=== PATIENT | female | born 1995 | race Caucasian/White ===

== ENCOUNTER 2022-07-08 10:28 | Emergency (ER) | payer BC, SELFPAY ==
[2022-07-08 10:34] VITALS: BP 115/79; PULSE 89; RESP 18; TEMP 37; O2SAT 98
--- NOTE | 2022-07-08 11:31 | ED.GENADUL_ITS ---
Discharge Plan Disposition Patient Disposition: Home Discharge Details Clinical Impression: Pain, dental Primary Care Provider: Kylee Evans ED Provider: Martin Aburto Home Meds and New Rx's Prescriptions: New ketorolac 10 mg tablet 10 mg PO TID PRN (Reason: pain) 5 Days Qty: 15 0RF cyclobenzaprine 10 mg tablet 10 mg PO TID PRN (Reason: muscle spasm) Qty: 20 0RF amoxicillin-pot clavulanate 875-125 mg tablet 1 tab PO Q12H 7 Days Qty: 14 0RF Discharge Instructions Instructions: Toothache (ED) Additional Instructions: Please take medication as prescribed and monitor your symptoms. It is very important that you follow-up with your dental provider or your primary care provider for any new or significant worsening of symptoms. If you develop persistent fevers, facial swelling, inability to swallow or control your saliva or changes in your voice please return immediately to the emergency department for reassessment. Stand Alone Forms: Work Release Referrals: Kylee Evans [Primary Care Provider] - Medical Decision Making Patient presenting to the emergency department for chief complaint of left upper jaw pain. Patient states that this all started after she had a filling put in 3 weeks ago. She was seen multiple times by multiple dentist that said that she had developed a hematoma that she also had needed a root canal. Since then she is been taking [id number] and following instructions as per dental provider. The patient states that she is started developing some night sweats and subjective fever, worsening pain and discomfort in the past for eating. She does state that she has been clenching her jaw which is not helped the discomfort. Physical exam does show tenderness to the left TMJ of the line is an exam shows no emergent findings. No signs of deep neck space infection ( Retropharyngeal abscess, Sarbjit's angina, Parapharyngeal space infection, Peritonsillar Abscess ([employer])) or Epiglottitis. Pt non toxic and stable. Differential diagnosis to include continued hematoma, postprocedural neuropathic pain, TMJ joint dysfunction, infected dental carry post procedure. At this time I do not feel that advanced imaging is required but this was discussed and offered to the patient which after utilization of shared decision-making patient decided to defer on advanced imaging as well. We will plan to cover patient with antibiotics due to night sweats and subjective chills. We will place patient on Flexeril for TM J joint pain and discomfort along with some ketorolac. On screening patient did state that she was having some anxiety depression and suicidal ideations. Did discuss this with patient and she stated that she has had those ongoing for a while, that she feels safe and supported by family and that she has no plan to harm herself.. Offered her screening and resources here today but she stated due to the significant pain and discomfort along with other social stressors at this point she does not want to talk with anyone. Patient is alert and oriented x3 and I do feel is trustworthy that she will return for worsening symptoms but do not feel that I need to further press the issue with patient. Patient also does state that she has a dental provider follow-up next Monday which I told her it is very important to keep this for definitive care of her dental issue. After discussion of diagnosis and plan of care patient has no further needs, questions, or concerns and states clear understanding to return to the emergency department for any worsening symptoms. This documentation was generated using [employer] system, please disregard any oddities of phrase or misspellings. HPI General Mode of arrival: ambulatory . Date/Time Provider Initiated Documentation: 07/08/22 11:29 . Limitations to Documentation: no limitations . Information obtained by: patient and RN notes reviewed . History of Present Illness 26 year old F presents to the emergency department with the chief complaint of left jaw pain , described as severe, with intensity rated at 10. Quality is described as sharp, and is localized to the face. Patient started experiencing this week(s) (3) and it has been constant. No relieving factors improve symptom(s), No exacerbating factors reported . Patient did receive the following treatments prior to arrival, NSAID Related Data Home Medications Medication Instructions Recorded Confirmed amoxicillin 875 mg-potassium 1 tab PO Q12H 7 days #14 tabs 07/08/22 clavulanate 125 mg tablet cyclobenzaprine 10 mg tablet 10 mg PO TID PRN muscle spasm #20 07/08/22 tabs ketorolac 10 mg tablet 10 mg PO TID PRN pain 5 days #15 07/08/22 tabs Previous Rx's Medication Instructions Recorded amoxicillin 875 mg-potassium 1 tab PO Q12H 7 days #14 tabs 07/08/22 clavulanate 125 mg tablet cyclobenzaprine 10 mg tablet 10 mg PO TID PRN muscle spasm #20 07/08/22 tabs ketorolac 10 mg tablet 10 mg PO TID PRN pain 5 days #15 07/08/22 tabs Allergies Allergy/AdvReac Type Severity Reaction Status Date / Time Latex, Natural Rubber Allergy Skin Rash Unverified 07/08/22 10:39 General Stated Complaint: DentalOral ANDREA: 4 Review of Systems Constitutional Constitutional: Reports fever(s), Reports headache(s), Reports malaise, Reports night sweats and Reports poor appetite Eyes Eyes: Reports system reviewed and no additional complaints, except as documented ENT Ears, Nose, Mouth, and Throat: Reports as per HPI, Denies change in voice, Reports dental pain, Denies dysphagia, Denies otalgia, Reports headache(s), Reports mouth pain, Denies nasal discharge, Denies neck mass and Denies neck pain Cardiovascular Cardiovascular: Denies chest pain and Denies dyspnea Respiratory Respiratory: Denies cough and Denies dyspnea Gastrointestinal Gastrointestinal: Denies dysphagia Musculoskeletal Musculoskeletal: Denies neck pain Integumentary/Breasts Skin/Breast: Denies skin swelling Neurologic Neurologic: Reports headache(s) PFSH All Active Problems Pain, dental (Acute) Social History Smoking/Tobacco Use Status: Current every day Tobacco Type: cigarettes Smoking risk assessment performed?: Yes Alcohol Intake: former Drug use: Daily Substance use type: marijuana Details: medical marijuana Exam Const General: cooperative Orientation: alert, awake and oriented x3 Limitations: mental status not altered [facility] Head: normal to inspection, normocephalic and atraumatic Ears: hearing grossly normal bilaterally, normal mastoids bilaterally and no periauricular adenopathy General nose exam: external nose normal Face and sinus: tenderness on the left (TMJ) Mouth: oropharynx normal, no drooling, no muffled voice, normal tongue and no trismus Teeth and gingiva: caries Throat: posterior oropharynx normal, tonsils normal and uvula midline Eyes General: appearance normal, both eyes and all related structures Pupils: PERRL Neck Neck: normal visual inspection, full ROM, no lymphadenopathy, no meningeal signs, trachea midline, supple, no anterior neck swelling and no midline deformity Resp Effort & Inspection: normal respiratory effort and able to speak in complete sentences Cardio Rate: regular rate Rhythm: regular rhythm Heart Sounds: S1 normal and S2 normal Course Vital Signs Vital signs: Vital Signs Temperature 37.0 C 07/08/22 10:34 Pulse 89 07/08/22 10:34 Respiratory Rate 18 07/08/22 10:34 Blood Pressure 115/79 07/08/22 10:34 Pulse Oximetry 98 07/08/22 10:34 Temperature 37.0 C 07/08/22 10:34 Temperature Source Temporal Artery Scan 07/08/22 10:34 Pulse 89 07/08/22 10:34 Respiratory Rate 18 07/08/22 10:34 Respiratory Effort Normal, Non-Labored 07/08/22 10:40 Blood Pressure 115/79 07/08/22 10:34 Blood Pressure Position Sitting 07/08/22 10:34 Pulse Oximetry 98 07/08/22 10:34 Oxygen Delivery Method Room Air 07/08/22 10:34 Oxygen Flow Rate 0 07/08/22 10:34
[2022-07-08] MEDS: Ketorolac 10 MG TAB PO (11:40)
[2022-07-08] MEDS: Amoxicillin 875/Clav. 125 TAB PO (11:40)
[2022-07-08] MEDS: Cyclobenzaprine 10 MG TAB PO (11:40)
[2022-07-08 11:46] VITALS: BP 117/78; PULSE 92; RESP 20; TEMP 37.1; O2SAT 96
--- NOTE | 2022-07-08 11:46 | NUR.NOTE ---
Nursing Note: PT needs [facility] follow up next week for anxiety & depression. Latoya, ED
== END 2022-07-08 15:12 | disposition home or self-care (01) ==
PROVIDERS: Emergency Provider Nurse Practitioner Family; PCP Nurse Practitioner Family
DX: R68.84 Jaw pain (principal); F41.9 Anxiety disorder, unspecified
CPT/HCPCS: 99283

== ENCOUNTER 2022-11-01 18:49 | Outpatient (REF) | payer BC, SELFPAY ==
[2022-11-01 22:22] LABS: Abs Immature Grans 0.01 10^3/uL (0.0-0.06); Absolute Basophil Count 0.04 10^3/uL (0.0-0.2); Absolute Eosinophil Count 0.07 10^3/uL (0.0-0.7); Absolute Lymphocyte Count 0.76 10^3/uL (1.2-3.4); Absolute Monocyte Count 0.86 10^3/uL (0.1-0.8); Absolute Neutrophil Count 1.64 10^3/uL (1.2-6.7); Basophils % 1.2; Eosinophils % 2.1; HCT 38.6 % (36.0-46.0); HGB 13.3 g/dL (11.2-15.7); Immature Grans % 0.3; Lymphocytes % 22.5; MCH 33.6 pg (27.0-33.0); MCHC 34.5 % (32.0-36.0); MCV 98 fL (80-95); MPV 11.4 fL (8.0-11.0); Monocytes % 25.4; Neutrophils % 48.5; Platelet Count 250 10^3/uL (130-400); RBC 3.96 10^6/uL (3.93-5.22); RDW 12.3 % (11.7-14.6); RDW-SD 44.1 fL; WBC 3.38 10^3/uL (4.4-10.8)
[2022-11-01 22:47] LABS: ALT 16 U/L (14-59); AST 18 U/L (15-37); Albumin 4.2 g/dL (3.4-5.0); Alkaline Phosphatase 67 U/L (46-116); Anion Gap 10.1 mmol/L (3-11); BUN 4 mg/dL (7-18); Bilirubin, Total 0.3 mg/dL (0.2-1.0); CO2 23.9 mmol/L (21.0-32.0); CREATININE 0.8 mg/dL (0.55-1.02); Calcium 9.4 mg/dL (8.5-10.1); Chloride 104 mmol/L (98-107); Glucose 82 mg/dL (74-106); Potassium 3.7 mmol/L (3.5-5.1); Sodium 138 mmol/L (136-145); Total Protein 7.3 g/dL (6.4-8.2)
[2022-11-03 11:23] LABS: Lyme Ab w Rflx to Lyme Confirm Negative (Negative)
[2022-11-04 12:15] LABS: EBNA IgG Negative (Negative); EBV Interpretation (See Note); VCA IgG Negative (Negative); VCA IgM Negative (Negative)
[2022-11-05 09:44] LABS: Anaplasma phagocytophilum Negative (Negative); B. miyamotoi PCR Negative (Negative); Babesia divergens/MO-1 Negative (Negative); Babesia duncani Negative (Negative); Babesia microti Negative (Negative); Ehrlichia chaffeensis Negative (Negative); Ehrlichia ewingii/canis Negative (Negative); Ehrlichia muris eauclairensis Negative (Negative)
== END 2022-11-01 18:50 | disposition home or self-care (01) ==
LOC: LBN 18:49
PROVIDERS: PCP Nurse Practitioner Family; Visit Provider Nurse Practitioner Family
DX: M79.18 Myalgia, other site (principal); W57.XXXA Bitten or stung by nonvenomous insect and other nonvenomous arthropods, initial encounter; J02.9 Acute pharyngitis, unspecified
CPT/HCPCS: 80053; 87798; 85025; 86618; 86664; 86665

== ENCOUNTER 2023-02-06 14:51 | Emergency (ER) | payer BC, SELFPAY ==
[2023-02-06 14:54] VITALS: BP 130/97; PULSE 78; RESP 15; TEMP 36.7; O2SAT 99
--- NOTE | 2023-02-06 14:58 | ED.GENADUL_ITS ---
Discharge Plan Discharge Details Chief Complaint: Abd Prob Primary Care Provider: Kylee Evans ED Provider: Wilver Torres Home Meds and New Rx's Prescriptions: No Action cyclobenzaprine 10 mg tablet 10 mg PO TID PRN (Reason: muscle spasm) Qty: 20 0RF Medical Decision Making 27-year-old female presents with right lower quadrant abdominal discomfort, as well as flank discomfort, denies urinary frequency or dysuria, no history of kidney stones, no history of abdominal surgeries. Patient is afebrile nontoxic does appear mildly uncomfortable. Consider kidney stone versus early pyelonephritis versus appendicitis versus colitis versus ovarian cyst lower suspicion for . Screening labs UA Upreg imaging fluids analgesia close reassessment. HPI General Date/Time Provider Initiated Documentation: 02/06/23 14:53 . HPI Narrative: 27-year-old female denies past medical history, presents with right lower quadrant abdominal pain and right flank pain that began this afternoon, denies urinary frequency or dysuria, denies history of kidney stone, no fever chills nausea or vomiting. Denies history abdominal surgery. Related Data Home Medications Medication Instructions Recorded Confirmed cyclobenzaprine 10 mg tablet 10 mg PO TID PRN muscle spasm #20 07/08/22 tabs Previous Rx's Medication Instructions Recorded cyclobenzaprine 10 mg tablet 10 mg PO TID PRN muscle spasm #20 07/08/22 tabs Allergies Allergy/AdvReac Type Severity Reaction Status Date / Time Latex, Natural Rubber Allergy Skin Rash Unverified 07/08/22 10:39 General Stated Complaint: Abd Prob ANDREA: 3 Review of Systems Narrative: Review of Systems Constitutional: negative Eyes: negative ENT: negative Cardiovascular: negative Respiratory: negative Gastrointestinal: Abdominal pain, flank pain : negative Musculoskeletal: negative Skin: negative Neurologic: negative Psych: negative PFSH Social History Smoking/Tobacco Use Status: Current every day Tobacco Type: cigarettes Smoking risk assessment performed?: Yes Alcohol Intake: former Drug use: Daily Substance use type: marijuana Details: medical marijuana Exam Narrative Exam Narrative: Physical Examination General: alert, awake, cooperative, resting comfortably, no acute distress HEENT: normocephalic, atraumatic; PERRL, EOM intact, conjunctiva normal; no nasal discharge; moist mucous membranes, oral and pharyngeal mucosa normal, tolerating secretions Neck: supple, trachea midline; full ROM Chest: normal to inspection Respiratory: normal respiratory effort, speaking in full sentences, clear to auscultation, no wheezing, rales or rhonchi Cardiac: regular rate, regular rhythm, S1S2 intact, no murmurs rubs or gallops GI: abdomen soft, non-tender, non-distended; no palpable mass or hepatosplenomegaly Skin: no lesions, rashes or trauma appreciated Neuro: AAOx3, normal speech, moving all extremities Psych: Appropriate mood and affect Course Vital Signs Vital signs: Vital Signs Temperature 36.7 C 02/06/23 14:54 Pulse 78 02/06/23 14:54 Respiratory Rate 15 02/06/23 14:54 Blood Pressure 130/97 H 02/06/23 14:54 Pulse Oximetry 99 02/06/23 14:54 Temperature 36.7 C 02/06/23 14:54 Temperature Source Oral 02/06/23 14:54 Pulse 78 02/06/23 14:54 Respiratory Rate 15 02/06/23 14:54 Blood Pressure 130/97 H 02/06/23 14:54 Blood Pressure Position Sitting 02/06/23 14:54 Pulse Oximetry 99 02/06/23 14:54 Oxygen Delivery Method Room Air 02/06/23 14:54 Oxygen Flow Rate 0 02/06/23 14:54 Pain Level 5 02/06/23 14:54
[2023-02-06 15:08] LABS: Bilirubin Negative (Negative); Blood Trace-lysed (Negative); Clarity Clear (Clear); Glucose Negative (Negative); Ketones Negative (Negative); Leukocyte Esterase Negative (Negative); Nitrite Negative (Negative); Specific Gravity 1.015 (1.005-1.025); Urobilinogen 0.2 mg/dL (Up to 0.2); pH 7.5 (5-8)
[2023-02-06 15:14] LABS: Abs Immature Grans 0.02 10^3/uL (0.0-0.06); Absolute Basophil Count 0.04 10^3/uL (0.0-0.2); Absolute Eosinophil Count 0.04 10^3/uL (0.0-0.7); Absolute Lymphocyte Count 2.69 10^3/uL (1.2-3.4); Absolute Neutrophil Count 5.65 10^3/uL (1.2-6.7); Basophils % 0.4; Eosinophils % 0.4; HCT 38.8 % (36.0-46.0); HGB 13.3 g/dL (11.2-15.7); Immature Grans % 0.2; Lymphocytes % 29.8; MCH 33.4 pg (27.0-33.0); MCHC 34.3 % (32.0-36.0); MCV 98 fL (80-95); MPV 10.3 fL (8.0-11.0); Monocytes % 6.6; Neutrophils % 62.6; Platelet Count 273 10^3/uL (130-400); RBC 3.98 10^6/uL (3.93-5.22); RDW 12.4 % (11.7-14.6); RDW-SD 44.5 fL; WBC 9.04 10^3/uL (4.4-10.8)
[2023-02-06 15:15] LABS: Bacteria Negative HPF (Negative); C & S Indicated? No; Casts Negative LPF (Negative); Crystals Negative HPF (Negative); Epithelial Cells Rare HPF (Negative); Mucus Negative (Negative); RBC 0-2 HPF (0-2); WBC Negative HPF (0-5)
[2023-02-06] MEDS: Ketorolac 15 MG/ML VIAL IVP (15:16)
[2023-02-06] MEDS: LORazepam 2 MG/ML VIAL 0.5 MG IVP (15:16)
[2023-02-06] MEDS: Normal Saline 1,000 ML 1000 ML IV (15:16)
[2023-02-06 15:41] LABS: ALT 16 U/L (14-59); AST 18 U/L (15-37); Albumin 4.6 g/dL (3.4-5.0); Alkaline Phosphatase 64 U/L (46-116); Anion Gap 11.2 mmol/L (3-11); BUN 6 mg/dL (7-18); Bilirubin, Total 0.5 mg/dL (0.2-1.0); CO2 23.8 mmol/L (21.0-32.0); CREATININE 0.8 mg/dL (0.55-1.02); Calcium 9.8 mg/dL (8.5-10.1); Chloride 101 mmol/L (98-107); Glucose 97 mg/dL (74-106); Potassium 3.5 mmol/L (3.5-5.1); Sodium 136 mmol/L (136-145)
[2023-02-06] MEDS: Normal Saline - Diluent 50 ML VIAL IJ (15:53)
[2023-02-06] MEDS: Omnipaque 350 MG/ML 100 ML BTL IJ (15:55)
--- NOTE | 2023-02-06 16:00 | DI.CT_ITS ---
Exam(s) CT ABDOMEN PELVIS W EXAM: CT ABDOMEN PELVIS W CLINICAL HISTORY: RLQ pain/flank pain; kidney stone v appi v ovarian TECHNIQUE: Imaging Protocol: Axial computed tomography images with coronal and sagittal reformatted images were created and reviewed CONTRAST MATERIAL: Intravenous: Omnipaque 350 Contrast volume:100 mL Oral: No COMPARISON: No exams were available for comparison FINDINGS: ABDOMEN: Lung Bases: Normal where visualized. Liver: Normal density. No measurable mass. Portal, Superior Mesenteric, and Splenic Veins: Unremarkable. Gallbladder and Biliary Tract: No radiodense calculus or dilation. Pancreas: Normal density, no abnormal calcifications or inflammatory process. Spleen: Normal. Adrenals: No masses seen. Kidneys: Normal size, contour and axis. No radiodense stones or obstructive uropathy. No masses seen. Abdominal Aorta: Abdominal portion non-dilated. Bowel: No obstruction or bowel wall thickening. Appendix is unremarkable. Peritoneal Cavity: There is a trace amount of free fluid in the pelvis. This is likely physiologic. No free air. Lymph Nodes: Within normal limits. Bones: Within normal limits for the patient's age. Soft Tissues: Unremarkable. PELVIS: Bladder: Symmetric distention, no gross wall thickening. Reproductive Organs: Unremarkable as visualized. Lymph Nodes: Within normal limits. Bones: Within normal limits for the patient's age. IMPRESSION: 1. No evidence of obstructive uropathy. 2. Normal appendix. 3. Findings were discussed with Dr. Torres at 4:15 p.m. on 02/06/2023. RADIATION DOSE DELIVERED: Total DLP DATA REPOSITORY: All CT scans at this facility are submitted to the National Radiology Data Registry (NRDR) Dose Index Registry (DIR) with the [employer] (ACR). RADIATION OPTIMIZATION: All CT scans at this facility use at least one of these dose optimization te chniques: automated exposure control; mA and/or kV adjustment per patient size (includes targeted exa ms where dose is matched to clinical indication); or iterative reconstruction.
[2023-02-06 16:34] VITALS: BP 129/64; PULSE 81; RESP 18; TEMP 37.1; O2SAT 97
== END 2023-02-06 16:36 | disposition home or self-care (01) ==
PROVIDERS: Emergency Provider Emergency Medicine; PCP Nurse Practitioner Family
DX: R10.31 Right lower quadrant pain (principal); F17.210 Nicotine dependence, cigarettes, uncomplicated
CPT/HCPCS: 36415; 80053; 96361; 96374; 96375; 99285; 74177; 81003; 81015; 85025; 99284; J1885; J2060; J3490

== ENCOUNTER 2023-03-06 16:25 | Emergency (ER) | payer BC, SELFPAY ==
[2023-03-06] VITALS (11 sets, daily range): BP systolic 106–133; BP diastolic 62–80; PULSE 79–93; RESP 16; TEMP 37.4; O2SAT 97–100
--- NOTE | 2023-03-06 17:24 | DI.US_ITS ---
Exam(s) US PELVIS TRANSVAGINAL EXAM: US PELVIS TRANSVAGINAL CLINICAL HISTORY: RLQ pain, eval ovary/cyst/torsion TECHNIQUE: Transabdominal and transvaginal imaging was performed using standard protocol. COMPARISON: CT CT ABDOMEN PELVIS W from 02/06/2023 FINDINGS: UTERUS: Anteverted. 6.7 x 3.3 x 3.9 cm Endometrium: 6 mm Myometrium: Unremarkable. Cervix: Unremarkable. OVARIES: Right: Cyst or mass: None. Left: Cyst or mass: None. DOPPLER: Color: Symmetric and uniform flow to both ovaries. No hyperemia. CUL-DE-SAC: Free fluid: Trace IMPRESSION: 1. Normal-appearing uterus with endometrial stripe within normal limits. 2. Unremarkable bilateral ovaries. No evidence of torsion. DATA REPOSITORY:
--- NOTE | 2023-03-06 17:25 | W.ED.GENAD ---
Discharge Plan Disposition Patient Disposition: Home Condition: Good Discharge Details Clinical Impression: Groin pain Primary Care Provider: Kylee Evans ED Provider: Constanza Henry Home Meds and New Rx's Prescriptions: New cyclobenzaprine 10 mg tablet 10 mg PO TID PRNQty: 14 0RF Discharge Instructions Instructions: Groin Pain (ED) Additional Instructions: Ibuprofen or naproxen over the counter; follow the directions on the bottle. Use heat packs. Cyclobenzaprine up to every 8 hours for pain; do not drive after taking this You may find the book 'Relieving pelvic pain during and after ' by Leslie Helms helpful (despite your symptoms being entirely unrelated to and more likely related to non- hypermobility) Call your primary care doctor tomorrow to schedule an appointment to follow up on your visit today. Return to the emergency department for new or worsening symptoms including fever, vomiting, uncontrolled pain, or if you have any other concerns. Stand Alone Forms: Work Release Referrals: Kylee Evans [Primary Care Provider] - Medical Decision Making 27yo F presenting with right lower abdominal pain radiating into her right flank. Pain is sharp, severe, and worse with movement. No associated symptoms, systemically well. Seen in this ED one month ago; ED visit note and imaging reviewed, at that time diagnosed with possible kidney stones based on symptoms and urinary findings, CT with no appendicitis and no radioopaque stones. Vital signs reassuring on arrival, on exam she has some RLQ discomfort with palpation without emre tenderness. She does appear markedly uncomfortable. Symptoms treated with tylenol, toradol, morphine, prophylactic zofran. Labs reviewed as below, CBC & CMP reassuring with no significant abnormalities, no leukocytosis. Not . Urine without suggestion of UTI, not concerning for nephrolithiasis. Pelvic ultrasound ordered and reviewed, no large ovarian cyst on my view, radiology read below with normal ultrasound. No torsion, ectopic , significant ovarian cyst. Exam and and history not suggestive of appendicitis or bowel obstruction; would not repeat CT imaging. On reassessment she reports pain has somewhat improved. On repeat exam she has notable severe reproducible tenderness to right inguinal ligament particularly at insertion into pubis sympathis as well as palpable spasm on with posterior hip. Suspect this is likely the etiology of her pain. 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 Will prescribe short course of flexeril, adivsed symptomatic treatment at home, offered PT referral which patient declined. Discharged home; discharge instructions including return precautions were reviewed with patient who verbalized understanding. All questions were answered and they are in full agreement with the plan. Medical Records Medical records reviewed: Yes I reviewed the patient's medical records. Imaging Data Radiologic Study: Imaging: Ultrasound and CT Scan Radiologist's impression: IMPRESSION: 1. Normal-appearing uterus with endometrial stripe within normal limits. 2. Unremarkable bilateral ovaries. No evidence of torsion. Radiologic Study #2: Imaging: CT Scan Radiologist's impression: CT 02/06/23 IMPRESSION: 1. No evidence of obstructive uropathy. 2. Normal appendix. Lab Data Lab results reviewed: Yes I reviewed the patient's lab results. Labs: Laboratory Tests Range/Units 03/06/23 03/06/23 16:36 16:52 WBC (4.4-10.8) 10^3/uL 6.66 RBC (3.93-5.22) 10^6/uL 3.92 L Hgb (11.2-15.7) g/dL 13.1 Hct (36.0-46.0) % 37.8 MCV (80-95) fL 96 H MCH (27.0-33.0) pg 33.4 H MCHC (32.0-36.0) % 34.7 RDW (11.7-14.6) % 12.0 Plt Count (130-400) 10^3/uL 281 MPV (8.0-11.0) fL 10.5 Immature Gran % 0.2 Neutrophils % 45.3 Lymphocytes % 41.0 Monocytes % 9.9 Eosinophils % 2.7 Basophils % 0.9 Nucleated RBC % (0.0-0.3) % 0.0 Absolute Neutrophils (1.2-6.7) 10^3/uL 3.02 Absolute Lymphocytes (1.2-3.4) 10^3/uL 2.73 Absolute Monocytes (0.1-0.8) 10^3/uL 0.66 Absolute Eosinophils (0.0-0.7) 10^3/uL 0.18 Absolute Basophils (0.0-0.2) 10^3/uL 0.06 Sodium (136-145) mmol/L 141 Potassium (3.5-5.1) mmol/L 3.6 Chloride (98-107) mmol/L 106 Carbon Dioxide (21.0-32.0) mmol/L 25.1 Anion Gap (3-11) mmol/L 9.9 BUN (7-18) mg/dL 6 L Creatinine (0.55-1.02) mg/dL 0.7 Est GFR (CKD-EPI 2020) (mL/min/1.73m2) 123.01 Glucose (74-106) mg/dL 74 Calcium (8.5-10.1) mg/dL 9.2 Total Bilirubin (0.2-1.0) mg/dL 0.2 AST (15-37) U/L 16 ALT (14-59) U/L 21 Alkaline Phosphatase (46-116) U/L 73 Total Protein (6.4-8.2) g/dL 7.3 Albumin (3.4-5.0) g/dL 4.0 Beta HCG, Quant (1-3) mIU/mL 1 Urine Color (Yellow) Yellow Urine Clarity (Clear) Clear Urine pH (5-8) 7.5 Ur Specific [place] (1.005-1.025) 1.015 Urine Protein (Negative) mg/dL Negative Urine Ketones (Negative) mg/dL Negative Urine Blood (Negative) Trace-intact H Urine Nitrite (Negative) Negative Urine Bilirubin (Negative) Negative Urine Urobilinogen (Up to 0.2) mg/dL 0.2 Ur Leukocyte Esterase (Negative) Negative Urine RBC (0-2) HPF 0-2 Urine WBC (0-5) HPF 0-2 Ur Epithelial Cells (Negative) HPF Rare Urine Crystals (Negative) HPF Negative Urine Bacteria (Negative) HPF Rare Urine Casts (Negative) LPF Negative Urine Mucus (Negative) Negative Ur Culture Indicated? No Urine Glucose (Negative) mg/dL Negative HPI General Mode of arrival: ambulatory. Date/Time Provider Initiated Documentation: 03/06/23 16:33. Limitations to Documentation: no limitations. Information obtained by: patient and old records reviewed. HPI Narrative: 27yo F presenting with right lower abdominal pain radiating into her right flank. Pain is sharp, severe, and worse with movement. No nausea, vomiting, or diarrhea; normal bowel movement this morning. Good appetite. No dysuria, hematuria, or vaginal discharge. No fevers or chills. Had similar symptoms month ago and was seen in this ED; diagnosed with possible kidney stones. She is otherwise in her usual state of health. Related Data Home Medications Medication Instructions Recorded Confirmed cyclobenzaprine 10 mg tablet 10 mg PO TID PRN #14 tabs 03/06/23 Previous Rx's Medication Instructions Recorded cyclobenzaprine 10 mg tablet 10 mg PO TID PRN #14 tabs 03/06/23 Allergies Allergy/AdvReac Type Severity Reaction Status Date / Time kale Allergy Severe Other (See Unverified 03/06/23 16:33 Comment) Latex, Natural Rubber Allergy Skin Rash Unverified 03/06/23 16:33 General Stated Complaint: Abd Prob ANDREA: 3 Review of Systems Narrative: see HPI PFSH All Active Problems (Updated 03/06/23 @ 18:55 by Constanza Henry MD) Groin pain (Acute) Flank pain (Acute) Social History Smoking/Tobacco Use Status: Current every day Tobacco Type: cigarettes Smoking risk assessment performed?: Yes Alcohol Intake: former Drug use: Daily Substance use type: marijuana Details: medical marijuana Housing: house Exam Narrative Exam Narrative: General: Alert, in no acute distress. Head: Normocephalic, atraumatic Neck: Trachea midline, Neck supple. Cardiac: RRR, no murmurs appreciated Resp: No respiratory distress. CTAB. Abd: Soft, non-distended. RLQ discomfort with palpation, no rebound or guarding : No suprapubic tenderness. No CVA tenderness. Extremities: No deformities. No peripheral edema. Neurologic: GCS 15. Moves all extremities freely against gravity Course Vital Signs Vital signs: Vital Signs Temperature 37.4 C 03/06/23 16:29 Pulse 93 H 03/06/23 16:29 Respiratory Rate 16 03/06/23 16:29 Blood Pressure 127/70 03/06/23 16:29 Pulse Oximetry 100 03/06/23 16:29 Temperature 37.4 C 03/06/23 16:29 Temperature Source Temporal Artery Scan 03/06/23 16:29 Pulse 93 H 03/06/23 16:29 Respiratory Rate 16 03/06/23 16:29 Respiratory Effort Normal 03/06/23 16:32 Blood Pressure 127/70 03/06/23 16:29 Blood Pressure Position Sitting 03/06/23 16:29 Pulse Oximetry 100 03/06/23 16:29 Oxygen Delivery Method Room Air 03/06/23 16:29 Oxygen Flow Rate 0 03/06/23 16:29 Pain Level 8 03/06/23 16:29 Lab/Test Results Lab/Test Results: POC- Test(urine) Negative PAWSS Have you Been Recently Intoxicated or Drunk Within the Last 30 days?: No Have you Ever Experienced Previous Episodes of Alcohol Withdrawal?: No Have you ever Experienced Withdrawal Seizures?: No Have you ever Experienced Delirium Tremens(DT)s?: No Have you ever undergone Alcohol Rehabilitation Treatment (i.e, inpt ot outpatient treatment programs)?: No Have you ever Experienced Blackouts?: No Have you ever Combined Alcohol with other Downers within the last 90 days?: No Have you ever Combined Alcohol with any other Substance of Abuse during the last 90 days?: No Result: 0
[2023-03-06] MEDS: MORPHine 10 MG/ML VIAL 4 MG IVP (17:29)
[2023-03-06] MEDS: Ondansetron 4 MG/2 ML VIAL IVP (17:30)
[2023-03-06] MEDS: Ketorolac 15 MG/ML VIAL IVP (17:30)
[2023-03-06] MEDS: Normal Saline 1,000 ML 1000 ML IV (17:30)
[2023-03-06 17:34] LABS: Abs Immature Grans 0.01 10^3/uL (0.0-0.06); Absolute Basophil Count 0.06 10^3/uL (0.0-0.2); Absolute Eosinophil Count 0.18 10^3/uL (0.0-0.7); Absolute Lymphocyte Count 2.73 10^3/uL (1.2-3.4); Absolute Monocyte Count 0.66 10^3/uL (0.1-0.8); Absolute Neutrophil Count 3.02 10^3/uL (1.2-6.7); Basophils % 0.9; Eosinophils % 2.7; HCT 37.8 % (36.0-46.0); HGB 13.1 g/dL (11.2-15.7); Immature Grans % 0.2; MCH 33.4 pg (27.0-33.0); MCHC 34.7 % (32.0-36.0); MCV 96 fL (80-95); MPV 10.5 fL (8.0-11.0); Monocytes % 9.9; Neutrophils % 45.3; Platelet Count 281 10^3/uL (130-400); RBC 3.92 10^6/uL (3.93-5.22); RDW-SD 42.5 fL; WBC 6.66 10^3/uL (4.4-10.8)
[2023-03-06 17:36] LABS: Bilirubin Negative (Negative); Blood Trace-intact (Negative); Clarity Clear (Clear); Glucose Negative (Negative); Ketones Negative (Negative); Leukocyte Esterase Negative (Negative); Nitrite Negative (Negative); Specific Gravity 1.015 (1.005-1.025); Urobilinogen 0.2 mg/dL (Up to 0.2); pH 7.5 (5-8)
[2023-03-06 17:42] LABS: Bacteria Rare HPF (Negative); C & S Indicated? No; Casts Negative LPF (Negative); Crystals Negative HPF (Negative); Epithelial Cells Rare HPF (Negative); Mucus Negative (Negative); RBC 0-2 HPF (0-2); WBC 0-2 HPF (0-5)
[2023-03-06 17:54] LABS: ALT 21 U/L (14-59); AST 16 U/L (15-37); Alkaline Phosphatase 73 U/L (46-116); Anion Gap 9.9 mmol/L (3-11); BUN 6 mg/dL (7-18); Bilirubin, Total 0.2 mg/dL (0.2-1.0); CO2 25.1 mmol/L (21.0-32.0); CREATININE 0.7 mg/dL (0.55-1.02); Calcium 9.2 mg/dL (8.5-10.1); Chloride 106 mmol/L (98-107); Estimated GFR 123.01 (mL/min/1.73m2); Glucose 74 mg/dL (74-106); HCG Quant, Pregnancy 1 mIU/mL (1-3); Potassium 3.6 mmol/L (3.5-5.1); Sodium 141 mmol/L (136-145); Total Protein 7.3 g/dL (6.4-8.2)
[2023-03-06] MEDS: Cyclobenzaprine 10 MG TAB, 3 TABS/BTL PO (19:16)
== END 2023-03-06 19:17 | disposition home or self-care (01) ==
PROVIDERS: Emergency Provider Student in an Organized Health Care Education/Training Program; PCP Nurse Practitioner Family
DX: R10.31 Right lower quadrant pain (principal)
CPT/HCPCS: 80053; 96361; 96374; 96375; 99284; 76830; 76856; 81003; 81015; 84702; 85025; 99283; J1885; J2270; J2405

== ENCOUNTER 2023-08-02 16:05 | Outpatient (REF) | payer BC, SELFPAY ==
--- NOTE | 2023-08-02 14:15 | PAPFT_PTH ---
PATIENT: Ana Aguilar LOC: [facility]#:[id number] AGE/SX: 27/F ROOM: RE08/02/[address]: Kylee Evans : 1995 BED: DIS: 08/02/2023 SPEC #: [id number] RECD: 08/03/23 12:47 STATUS: HEAVENLY REAleah #: [id number] MADYSON: 08/02/23 14:[address]: Kylee Evans DEPT: [facility] Cytology RECD BY: Cecy Cardona Tissues: 1 - CX/ENDOCX FOR PAP SMEARS Procedures: PAP THIN PREP/UVM Screening HPV DNA PROBE Comments: [id number] (CHLAMYDIA/GC)
[2023-08-04 15:01] LABS: Chlamydia Result Negative (Negative); GC Result Negative (Negative)
== END 2023-08-02 16:06 | disposition home or self-care (01) ==
LOC: NCHCN 16:05
PROVIDERS: PCP Nurse Practitioner Family; Visit Provider Nurse Practitioner Family
DX: Z11.3 Encounter for screening for infections with a predominantly sexual mode of transmission (principal); Z00.00 Encounter for general adult medical examination without abnormal findings; Z12.4 Encounter for screening for malignant neoplasm of cervix
CPT/HCPCS: 87491; 87591; 88142; 87624

== ENCOUNTER → 2025-03-21 13:07 | Outpatient (CLI) | payer SELFPAY ==
--- NOTE | 2025-03-21 | DI.RAD_ITS ---
Exam(s) XR HAND RT COMPLETE EXAM: XR HAND RT COMPLETE CLINICAL HISTORY: M79.641 Pain RT hand, Punched fridge pain at 4th 5th MCP. TECHNIQUE: 2D digital imaging was performed of the right hand. Three images were obtained. AP, lateral and oblique views were obtained. COMPARISON: No exams were available for comparison FINDINGS: BONES: No acute fracture is present. No bony destructive lesion is seen. JOINTS: No dislocation present. SOFT TISSUE: Normal. IMPRESSION: Unremarkable radiographs of the right hand. DATA REPOSITORY: RADIATION DOSE DELIVERED:
== END ==
LOC: DI 13:07
PROVIDERS: PCP Nurse Practitioner Family; Visit Provider Physician Assistant Medical
DX: M79.641 Pain in right hand (principal)
CPT/HCPCS: 73130